=== PATIENT | male | born 1975 | race Caucasian/White ===

== ENCOUNTER 2022-06-03 23:58 | Emergency (ER) | payer OTHER, MEDICAID, SELFPAY ==
[2022-06-04 00:27] VITALS: BP 153/68; PULSE 92; RESP 20; TEMP 36.7; O2SAT 97
== END 2022-06-04 03:42 | disposition left against medical advice (07) ==
PROVIDERS: Emergency Provider Emergency Medicine
CPT/HCPCS: 99281